=== PATIENT | female | born 1965 | race Caucasian/White ===

== ENCOUNTER → 2018-11-03 | Day surgery (SDC) | payer OTHER ==
[~2018-11-03] MED LIST: ALPRAZOLAM0.25 M1 PO; ASPIRIN81 MG PO; BIOTIN2500 MCG PO; BIOTIN5 M1 PO; FENTANYL CITRATE/PF 100MCG/2 ML INJ ONE; FISH OIL 1,2001 EACH PO; FUROSEMIDE40 MG PO; GARCINIA CAMBOGIA PO; KLOR-CON 1010 MEQ PO; LIDOCAINE HCL 2% LOCAL INJ 5 ML SDV VIAL INJ ONE; LOSARTAN POTAS100 MG PO; MELATONIN PO; MELATONIN10 M1 PO; MIDAZOLAM HCL 2 MG/2 ML VIAL ONE; OMEGA 3 KRILL OIL PO; OMEPRAZOLE-BIC1 EACH PO; OMEPRAZOLE20 MG PO; PENTASA500 MG PO; PROPOFOL IV EMULSION 10 MG/ML 50 ML VIAL ONE; SERTRALINE HCL50 MG PO; SIMETHICONE 40 MG/0.6 ML BTL ONE; VITAMIN C1000 MG PO; VITAMIN D35000 UNIT PO
--- OUTSIDE RECORDS SUMMARY | 2018-11-03 05:12 | XMS REPORT | Summary of Care ---
Author Organization Unknown Address Unknown Phone Unavailable Encounter HQ Janeyr_marcos(MAKAYLA) [id number] Date(s): 05/10/14 - 05/10/14 [facility] [address] Discharge Disposition: Home Physician Attending: Kristy Beth MD Physician_Referring: Kristy Beth MD Reason for Visit FIRST NIGHT-30191 Problem List No data available for this section Allergies, Adverse Reactions, Alerts No data available for this section Medications No data available for this section Medications Administered During Your Visit No data available for this section Immunizations No data available for this section
--- OUTSIDE RECORDS SUMMARY | 2018-11-03 05:12 | XMS REPORT | Summary of Care ---
Author Organization Unknown Address Unknown Phone Unavailable Encounter HQ Sage(FIN) [id number] Date(s): 10/25/14 - 10/25/14 [facility] Outpatient Imaging - [place] [address] [place], [place] [address] [phone] Discharge Disposition: Home Physician Attending: Emma Ramachandran MD Vital Signs No data available for this section Problem List Condition Effective Dates Status Health Status Informant Acid Resolved reflux(Confirmed) Anxiety(Confirmed) Resolved Apnea(Confirmed) Resolved Blood Resolved clot(Confirmed)1 CC (Crohn's Resolved colitis)(Confirmed) 1d/t broken right ankle Allergies, Adverse Reactions, Alerts Substance Reaction Severity Status iodine topical Active Medications No data available for this section Results No data available for this section Immunizations No data available for this section Procedures Procedure Date Related Diagnosis Body Site Bunionectomy Closure of intestinal fistula Colonoscopy Correction of bunionette Excision of gallbladder Partial resection of colon Social History Social History Type Response Substance Abuse Use: None. Alcohol Never Smoking Status Never smoker; Exposure to Tobacco Smoke None; Cigarette Smoking Last 365 Days No; Reg Smoking Cessation Counseling No Assessment and Plan No data available for this section
--- OUTSIDE RECORDS SUMMARY | 2018-11-03 05:12 | XMS REPORT | Summary of Care ---
Author Author [facility] Outpatient Imaging [facility] Outpatient Imaging [facility] Address Unknown Phone Unavailable Encounter TYLER Cazares(FIN) [id number] Date(s): 01/04/18 - 01/04/18 [facility] Imaging [facility] [address] [facility], [address] [place] [address] [phone] Discharge Disposition: Home or Self Care Attending Physician: Travis Chappell MD Referring Physician: Travis Chappell MD Vital Signs No data available for this section Problem List Condition Effective Dates Status Health Status Informant Acid Resolved reflux(Confirmed) Anxiety(Confirmed) Resolved Apnea(Confirmed) Resolved CC (Crohn's Resolved colitis)(Confirmed) Allergies, Adverse Reactions, Alerts Substance Reaction Severity Status iodine topical Active Medications No data available for this section Results No data available for this section Immunizations No data available for this section Procedures Procedure Date Related Diagnosis Body Site Status Bunionectomy Completed Closure of intestinal fistula Completed Colonoscopy Completed Correction of bunionette Completed Excision of gallbladder Completed Partial resection of colon Completed Social History Social History Type Response Substance Abuse Use: None. Alcohol Never Smoking Status Never smoker; Exposure to Tobacco Smoke None; Cigarette Smoking Last 365 Days No; Reg Smoking Cessation Counseling No entered on: 06/06/14 Assessment and Plan No data available for this section
--- OUTSIDE RECORDS SUMMARY | 2018-11-03 05:12 | XMS REPORT ---
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 Allergies, Adverse Reactions, Alerts Allergy Name Allergy Type Status Severity Reaction(s) Onset Date Inactive Date Treating Clinician Comments florence DA Active ME 2016-06-06 00:00:00 Medications This patient has no known medications.
--- OUTSIDE RECORDS SUMMARY | 2018-11-03 05:12 | XMS REPORT | Summary of Care ---
Author Organization Unknown Address Unknown Phone Unavailable Encounter HQ Janeyr_deborahjohnson([facility]) [id number] Date(s): 04/26/14 - 04/26/14 [facility] Outpatient Imaging - [address] [address] Discharge Disposition: Home Physician Attending: Kulwant Nava MD Reason for Visit 719.46 - JOINT PAIN-L/LE 729.5 - PAIN IN LIMB Problem List No data available for this section Allergies, Adverse Reactions, Alerts No data available for this section Medications No data available for this section Medications Administered During Your Visit No data available for this section Immunizations No data available for this section
--- OUTSIDE RECORDS SUMMARY | 2018-11-03 05:12 | XMS REPORT | Continuity of Care Document ---
Author Author [facility] [email or web address] [facility] Interface Address Unknown Phone Unavailable Problems Problem Status Onset Date Classification Date Reported Comments Source K50.90 - CROHN'S DISEASE, UNSPECIFIED, Active 01/04/2018 [facility] SCREENING Active 10/11/2014 [facility] CPAP-17370 Active 05/17/2014 [facility] FIRST NIGHT-89406 Active 04/26/2014 [facility] UNK Active 04/26/2014 [facility] 555.9 Active 04/26/2014 [facility] V76.12 - SCREEN MAMMOGRA Active 09/13/2013 [facility] [place] EPIGASTRIC PAIN Active 08/28/2013 [facility] 611.72 - LUMP OR MASS IN Active 08/06/2013 [facility] [place] Acid reflux Resolved Problem 01/07/2018 [facility] [place], [facility] [place] Anxiety Resolved Problem 01/07/2018 [facility] [place], [facility] [place] Apnea Resolved Problem 01/07/2018 [facility] [place], [facility] [place] CC (<span ID="[id number]">Confirmed</span>) Resolved Problem 01/07/2018 [facility] [place], [facility] [place] Blood clot<sup>1</sup> Resolved Problem 10/28/2014 1d/t broken right ankle [facility] [place] Medications Medication Details Route Status Patient Instructions Ordering Provider Order Date Source Allergies, Adverse Reactions, Alerts Substance Category Reaction Severity Reaction type Status Date Reported Comments Source iodine topical Assertion Drug allergy Active [facility] [place] Immunizations Immunization Date Given Site Status Last Updated Comments Source Results Order Name Results Value Reference Range Date Interpretation Comments Source Chest 2 views DX Chest 2 views DX EXAM: XR CHEST 2 VIEWS DATE: 01/04/2018 at 0946 hours INDICATION: check for signs of sarcoidosis - K50.90 Crohn's disease, unspecified, without complications COMPARISON: None. TECHNIQUE: PA and lateral chest radiographs. FINDINGS: Lines, tubes and hardware: None. Lungs and pleura: The lungs are clear. No pleural effusion or pneumothorax. Heart and mediastinum: The heart size is normal. The mediastinal contours are normal. Pulmonary vascularity is normal. Bones: No acute abnormality. IMPRESSION: 1. No acute abnormality. 01/04/2018 - - Read by: Tian Heck MD Dictated Date/time: 01/04/18 13:26 Electronically Signed by: Tian Heck MD 01/04/18 13:26 FINAL REPORT [facility] Digital Mammo Screening Rajesh MA Digital Mammo Screening Rajesh MA - DIGITAL MAMMO SCREENING RAJESH MA BILATERAL DIGITAL SCREENING MAMMOGRAM WITH CAD: 10/25/2014 CLINICAL: Routine. Current study was evaluated with a Computer Aided Detection (CAD) system. Comparison is made to exam dated: 11/09/2013 mammogram - [facility]. The tissue of both breasts is almost entirely fat. No significant masses, calcifications, or other findings are seen in either breast. There has been no significant interval change. IMPRESSION: NEGATIVE There is no mammographic evidence of malignancy. A 1 year screening mammogram is recommended. Dr. Binta Sims D.O. ht/penrad:11/06/2014 11:23:48 Extrusion Operator: Manjula JIMENEZ(Jessica)(Walter), [facility] This exam was dictated and interpreted by [id number] for KARL Fields. letter sent: Normal exam Mammogram BI-RADS: 1 Negative 10/25/2014 - - Read by: Binta Sims DO Dictated Date/time: 11/06/14 11:23 Electronically Signed by: Binta Sims DO 11/06/14 11:23 FINAL REPORT WALI Fields Knee wo contrast MRI Knee wo contrast MRI EXAMINATION: MRI of the left knee without contrast. HISTORY: Anterior left knee pain FINDINGS: Radiographs dated 04/08/2014 are reviewed. Multiplanar, multisequence magnetic resonance imaging of the left knee is performed with an extremity coil without contrast. In the medial compartment, the meniscus is intact. There is no focal chondrosis or subchondral edema. In the lateral compartment, the meniscus is intact. There is no focal chondrosis or subchondral edema. In the patellofemoral compartment, there is lateral subluxation of the patella with partial-thickness and areas of near full-thickness chondrosis with foci of subchondral edema of the median ridge and lateral patellar facet. There is matching partial-thickness chondrosis of the lateral and central trochlea. The cruciate and collateral ligaments are normal. There is mild distal patellar tendinosis. The extensor mechanism is intact. There is a physiologic amount of fluid within the knee. There is a moderate-sized Mulligan's cyst. The bone marrow signal intensity is normal. IMPRESSION: 1. Moderate patellofemoral compartment chondrosis of the left knee with partial- thickness and areas of near full-thickness chondrosis with foci of subchondral edema of the median ridge and lateral patellar facet. There is also matching partial-thickness chondrosis of the lateral and central trochlea. 2. Mild distal left patellar tendinosis without tear. 3. Moderate-sized left knee Mulligan's cyst. 4. Otherwise, unremarkable MR examination of the left knee. Specifically, the left knee menisci, cruciate ligaments, and collateral ligaments are intact and there is no medial or lateral compartment chondrosis. 04/26/2014 - - Read by: Saroj Kim MD Dictated Date/time: 04/26/14 16:35 Electronically Signed by: Saroj Kim MD 04/26/14 16:58 FINAL REPORT WALI Fields Knee 3 views Knee 3 views Exam: Left knee x-ray, 3 views Reason for Exam: Left knee pain Comparison Exam: None Discussion: No fractures or dislocations are seen of the left knee. Mild osteoarthritis seen within the medial compartment. No intraosseous lesions. No radiopaque foreign bodies. Impression: 1. Mild osteoarthritis seen within the medial compartment. 04/08/2014 - - Read by: Wenceslao Palencia MD Dictated Date/time: 04/08/14 13:36 Electronically Signed by: Wenceslao Palencia MD 04/08/14 13:38 FINAL REPORT [facility] Digital Mammo Screening Rajesh MA Digital Mammo Screening Rajesh MA AMENDMENT: 11/23/2013 Austyn Collins M.D. Prior mammography dating back to 2009 is now available for review. There is no evidence of malignancy when comparing the current exam to these images. Continued yearly screening mammography is recommended. Amended BI-RADS: 2 Benign letter sent: Comp Normal - DIGITAL MAMMO SCREENING RAJESH MA BILATERAL DIGITAL SCREENING MAMMOGRAM WITH CAD: 11/09/2013 CLINICAL: Routine. Current study was evaluated with a Computer Aided Detection (CAD) system. Prior exams are being requested; however, they are unavailable at the time of this interpretation. Upon submission, a comparison can be performed. The tissue of both breasts is almost entirely fat. No significant masses, calcifications, or other findings are seen in either breast. IMPRESSION: BENIGN There is no mammographic evidence of malignancy. A screening mammogram in one year is recommended. Jimmy rachel/penrad:11/09/2013 10:03:36 Extrusion Operator: No JIMENEZ(R)(M), [facility] This exam was dictated and interpreted by [id number] for KARL Ríos. letter sent: Normal exam Mammogram BI-RADS: 2 Benign 11/09/2013 - - Read by: Jimmy Taylor MD Dictated Date/time: 11/23/13 15:46 Electronically Signed by: Jimmy Taylor MD 11/23/13 15:46 FINAL REPORT - - Read by: Jimmy Taylor MD Dictated Date/time: 11/09/13 10:03 Electronically Signed by: Jimmy Taylor MD 11/09/13 10:03 FINAL REPORT KARL Fields URINE CHEM U Preg Negative (08/28/2013 14:35:00 [place]) Negative 08/28/2013 [facility] Abdomen/Pelvis wo IV contrast CT Abdomen/Pelvis wo IV contrast CT EXAMINATION: CT of the abdomen and pelvis without contrast HISTORY: hypertension, Crohn's, epigastric pain, diarrhea COMPARISON: None. DLP: 977.49 TECHNIQUE: Multiple transaxial images through the abdomen and pelvis were acquired without administration of intravenous contrast. Oral contrast was also administered. Multiplanar reformatted images were performed.>] FINDINGS: The lung bases are clear bilaterally. The patient is status post cholecystectomy. The liver, pancreas, spleen, adrenal glands, and kidneys are within the normal limits imposed by the lack of intravenous contrast. The bladder, uterus, and visualized ovaries are unremarkable. The visualized hollow viscera are unremarkable. The patient is status post cholecystectomy. No significant bowel wall thickening or inflammatory fat stranding is seen. No intraperitoneal free air, free fluid, or pathologic adenopathy is noted. Facet arthrosis in the lower lumbar spine is seen. IMPRESSION: No acute intra-abdominal/pelvic abnormality SL: 13 08/28/2013 - - Read by: Timbo Sim Dictated Date/time: 08/28/13 13:42 Electronically Signed by: Timbo Sim MD 08/28/13 13:45 FINAL REPORT [facility] Vital Signs Vital Sign Value Date Comments Source Encounters Location Location Details Encounter Type Encounter Number Reason For Visit Attending Provider ADM Date DC Date Status Source [facility] Outpatient [id number] Paco Melanie 08/28/2013 08/29/2013 [facility] Outpatient Imaging - [place] [facility] [id number] Tiffani Hackett 11/09/2013 11/10/2013 [facility] [place] [facility] Outpatient Imaging - [place] [facility] [id number] Kulwant Nava 04/08/2014 04/09/2014 [facility] [place] [facility] Outpatient Imaging - [place] [facility] [id number] Kulwant Nava 04/26/2014 04/27/2014 [facility] [place] [facility] Outpatient [id number] Kristy Beth 05/11/2014 05/11/2014 [facility] Outpatient [id number] [facility] 06/01/2014 06/01/2014 [facility] Outpatient Imaging - [place] [facility] [id number] Emma Ramachandran 10/25/2014 10/26/2014 [facility] [place] [facility] Outpatient Imaging - [place] [facility] [id number] Travis Chappell 01/04/2018 01/05/2018 [facility] [place] Procedures Procedure Code Date Perfomer Comments Source Bunionectomy [id number] [facility] [place] Closure of intestinal fistula [id number] [facility] [place] Colonoscopy 45472179 [facility] [place] Correction of bunionette [id number] [facility] [place] Excision of gallbladder 15433207 [facility] [place] Partial resection of colon 89170282 [facility] [place] Bunionectomy 86333033 [facility] [place] Closure of intestinal fistula [id number] [facility] [place] Colonoscopy 20582464 [facility] [place] Correction of bunionette [id number] [facility] [place] Excision of gallbladder 79083021 [facility] [place] Partial resection of colon 57636434 [facility] [place]
--- OUTSIDE RECORDS SUMMARY | 2018-11-03 05:12 | XMS REPORT | Summary of Care ---
Author Organization Unknown Address Unknown Phone Unavailable Encounter HQ Janeyr_marcos(MAKAYLA) [id number] Date(s): 05/31/14 - 05/31/14 [facility] [address] Discharge Disposition: Home Physician Attending: Kristy Beth MD Physician_Referring: Kristy Beth MD Reason for Visit CPAP-46603 Problem List No data available for this section Allergies, Adverse Reactions, Alerts No data available for this section Medications No data available for this section Medications Administered During Your Visit No data available for this section Immunizations No data available for this section
--- OUTSIDE RECORDS SUMMARY | 2018-11-03 05:12 | XMS REPORT | Summary of Care ---
Author Organization Unknown Address Unknown Phone Unavailable Encounter Dates Location Diagnoses Discharge Providers Disposition 08/28/2013 [facility] 08/28/2013 [id number] [address] Reason for Visit EPIGASTRIC PAIN Problem List No data available for this section Allergies, Adverse Reactions, Alerts No data available for this section Medications No data available for this section Results URINE CHEM Most recent to 1 oldest [Reference Range]: U Preg [Negative] Negative (08/28/2013 14:35:00 [facility] Medications Administered During Your Visit No data available for this section Immunizations No data available for this section
--- OUTSIDE RECORDS SUMMARY | 2018-11-03 05:12 | XMS REPORT | Summary of Care ---
Author Organization Unknown Address Unknown Phone Unavailable Encounter HQ Janeyr_marcos([facility]) [id number] Date(s): 11/09/13 - 11/09/13 [facility] Outpatient Imaging - [address] [address] [place] Discharge Disposition: Home Physician Attending: Tiffani Hackett MD Reason for Visit V76.11 - SCREEN MAMMOGRA Problem List No data available for this section Allergies, Adverse Reactions, Alerts No data available for this section Medications No data available for this section Medications Administered During Your Visit No data available for this section Immunizations No data available for this section
[2018-11-03 08:05] VITALS: BP 121/63
== END | disposition home or self-care (01) ==
LOC: OR 05:00
PROVIDERS: ATTEND Internal Medicine Gastroenterology
DX: K50.90 Crohn's disease, unspecified, without complications (principal); R19.7 Diarrhea, unspecified; R12 Heartburn; Z71.3 Dietary counseling and surveillance; I10 Essential (primary) hypertension; E66.9 Obesity, unspecified; Z68.38 Body mass index [BMI] 38.0-38.9, adult; Z91.041 Radiographic dye allergy status; Z01.810 Encounter for preprocedural cardiovascular examination; K21.9 Gastro-esophageal reflux disease without esophagitis; D64.9 Anemia, unspecified; F41.9 Anxiety disorder, unspecified; K44.9 Diaphragmatic hernia without obstruction or gangrene; K63.3 Ulcer of intestine; K63.89 Other specified diseases of intestine; K64.8 Other hemorrhoids; K29.50 Unspecified chronic gastritis without bleeding
CPT/HCPCS: 43239; 45380; 93005; J2001; J2250; J2704; 45378